=== PATIENT | male | born 1995 | race Caucasian/White ===

== ENCOUNTER 2018-03-02 14:33 | Observation (INO) ==
[2018-03-02] MEDS ORDERED: Sod Chloride 0.9% Inj 1,000 ML IV.SIG ONE (15:04)
--- NOTE | 2018-03-02 15:10 | ED ---
HPI General Chief complaint: Nausea/Vomiting/Diarrhea Stated complaint: gen weakness Time Seen by Provider: 03/02/18 14:42 Source: patient Mode of arrival: ambulatory Limitations: no limitations History of Present Illness HPI Narrative: Patient is a 22-year-old male who presents emergency room with complaints of generalized weakness. Patient reports that he has had a stomach bug for the past 2 weeks, reports that he has been having nausea with diarrhea. Patient reports that he has been able to tolerate foods but has been feeling weak. His father was sick with similar symptoms. Patient reports today, his muscles feel tingly, reports that he feels weak all over his body. Patient denies any fevers or chills, complains of generalized weakness Related Data Home Medications Medication Instructions Recorded Confirmed No Known Home Medications 03/02/18 03/02/18 Allergies Allergy/AdvReac Type Severity Reaction Status Date / Time No Known Allergies Allergy Verified 03/02/18 14:58 Review of Systems ROS: all other systems reviewed are negative [facility] Medical History Medical History Patient denies medical problems (Acute) Surgical History Surgical History No history of previous surgery (Acute) Social History Social History Substance History: No History of Abuse Second Hand Smoke Exposure: No Smoking Status: Never smoker How Often Do You Have a Drink Containing Alcohol: Never Recent Travel in [facility] within the Last 8 Weeks: No Recent Out of Country Travel within the Last 8 Weeks: No Immunization History Tetanus Immunization: Unsure Exam Narrative Exam Narrative: GENERAL: moderate distress SKIN: Focused skin assessment warm/dry. HEAD: Atraumatic. Normocephalic. EYES: Pupils equal and round. No scleral icterus. No injection or drainage. ENT: No nasal bleeding or discharge. Mucous membranes pink and moist. NECK: Trachea midline. No JVD. CARDIOVASCULAR: Tachycardic. No murmur appreciated. RESPIRATORY: Clear to auscultation. Breath sounds equal bilaterally. Patient hyperventilating on exam GASTROINTESTINAL: Abdomen soft, non-tender, nondistended. Hepatic and splenic margins not palpable. MUSCULOSKELETAL: No obvious deformities. No clubbing. No cyanosis. No edema. NEUROLOGICAL: Awake and alert. No obvious cranial nerve deficits. Motor grossly within normal limits. Normal speech. PSYCHIATRIC: Anxious mood and affect; insight and judgment normal. Course Initial Documented Vital Signs Temperature 98.1 F 03/02/18 14:37 Pulse Rate 151 H 03/02/18 14:37 Respiratory Rate 26 H 03/02/18 14:37 Blood Pressure 148/80 H 03/02/18 14:37 Pulse Oximetry 100 03/02/18 14:37 Last Documented Vital Signs Temperature 98.1 F 03/02/18 14:37 Pulse Rate 127 H 03/02/18 16:48 Respiratory Rate 16 03/02/18 16:00 Blood Pressure 138/71 03/02/18 16:00 Pulse Oximetry 99 03/02/18 16:00 Medical Decision Making MDM Narrative Medical decision making narrative: During the course of the patients emergency department visit, the patients history, examination, and differential diagnosis were reviewed with the patient. The patient was placed on a front desk monitor with oximetry and frequent blood pressure monitoring. The patient had an IV access obtained and blood work sent for analysis. The patient was initially provided IVF as well as IV zofran. IV ativan ordered as patient is extremely anxious The patients laboratory studies were reviewed and remarkable for: WBC 2.6, hemoglobin 16.9, hematocrit 47.1, platelets 235 Sodium 136, potassium 3.2, carbon dioxide 17.8, BUN 14, creatinine 1.36, glucose 149, magnesium 2.1, T bili 1.2, AST 19, ALT 20, alk phos 80 CK total 80, lipase 128 Radiology studies were reviewed and remarkable for X-ray chest is negative for acute disease. cta neg for pe- it does show a thyroid nodule patient is dehydrated with a cr of 1.36 - he has been given 3 liters of IVF. Patient is feeling much better but has persistently elevated hr in the 130-140' s plan to obs for cardiac monitoring case reviewed with Dr. Beard who accepts pt to service Medical Screen Exam Complete: Yes Emergency Medical Condition: Yes Differential Diagnosis Differential Diagnosis: anxiety reaction, electrolyte abnormality, rhabdomyolysis, colitis Lab Data Lab results reviewed: Yes I reviewed the patient's lab results. Result diagrams: 03/02/18 15:10 03/02/18 15:10 Lab Results 03/02/18 03/02/18 03/02/18 Range/Units 15:10 15:10 16:55 WBC 2.6 L (4.0-11.0) th/mm3 RBC 5.07 (4.50-5.90) mil/mm3 Hgb 16.9 (13.0-17.0) gm/dL Hct 47.1 (39.0-51.0) % MCV 92.9 (80.0-100.0) fL MCH 33.3 (27.0-34.0) pg MCHC 35.9 (32.0-36.0) % RDW 12.4 (11.6-17.2) % Plt Count 235 (150-450) th/mm3 MPV 7.7 (7.0-11.0) fL Neut % (Auto) 47.2 (16.0-70.0) % Lymph % (Auto) 39.5 (9.0-44.0) % [place] % (Auto) 11.2 H (0.0-8.0) % Eos % (Auto) 1.3 (0.0-4.0) % Baso % (Auto) 0.8 (0.0-2.0) % Neut # (Auto) 1.2 L (1.8-7.7) th/mm3 Lymph # (Auto) 1.0 (1.0-4.8) th/mm3 [place] # (Auto) 0.3 (0.0-0.9) th/mm3 Eos # (Auto) 0.0 (0.0-0.4) th/mm3 Baso # (Auto) 0.0 (0.0-0.2) th/mm3 WBC Differential . Differential Comment Auto diff final Sodium 136 (136-145) meq/L Potassium 3.2 L (3.5-5.1) meq/L Chloride 105 (98-107) meq/L Carbon Dioxide 17.8 L (21.0-32.0) meq/L Anion Gap 13 (5-15) meq/L BUN 14 (7-18) mg/dL Creatinine 1.36 H (0.60-1.30) mg/dL Estimated GFR 66 L (>89) mL/min Random Glucose 149 H (74-106) mg/dL Calcium 9.9 (8.5-10.1) mg/dL Magnesium 2.1 (1.5-2.5) mg/dL Total Bilirubin 1.2 H (0.2-1.0) mg/dL AST 19 (15-37) U/L ALT 20 (12-78) U/L Alkaline Phosphatase 80 (45-117) U/L Total Creatine Kinase 100 (39-308) U/L Total Protein 8.6 H (6.4-8.2) g/dL Albumin 4.8 (3.4-5.0) g/dL Lipase 128 (73-393) U/L Urine Color Straw (Yellw/Straw) Urine Clarity Clear (Clear) Urine pH 8.0 (5.0-8.5) Ur Specific [place] 1.004 (1.002-1.035) Urine Protein Negative (Neg-Trace) mg/dL Urine Glucose (UA) Negative (Negative) mg/dL Urine Ketones Trace H (Negative) mg/dL Urine Occult Blood Negative (Negative) Urine Nitrate Negative (Negative) Urine Bilirubin Negative (Negative) Urine Urobilinogen Less than 2 (Less than 2) mg/dL Ur Leukocyte Esterase Negative (Negative) Urine WBC Less than 1 (0-5) /hpf Micro UA Comment Culture not ind Ur Microscopic Review Not Reportable Urine Culture Comments Culture not ind Imaging Data Radiologist's impression: Chest X-Ray 03/02/18 15:05 CONCLUSION: Negative for acute disease Chest CTA 03/02/18 17:04 CONCLUSION: 1. No pulmonary embolus or other acute cardiopulmonary disease demonstrated. 2. Left lobe thyroid nodule. Further characterization with outpatient thyroid ultrasound is recommended. Discharge Plan Discharge Disposition Patient Disposition: ED Admit(ED Internal Use Only) Discharge Condition Condition: Fair Discharge Order Discharge Orders: ED Use Only Admit Order (Routine); Ordered 03/02/18 Ordered By: Ngozi Berman Discharge Details Diagnosis: Dehydration, Tachycardia Physicians Team ED Provider: Ngozi Berman Primary Care Provider: UNKNOWN, Rxs /Orders / Referrals /Forms Prescriptions: No Action No Known Home Medications RF: 0 Status ED Status: Pending Admission
[2018-03-02] MEDS: Sod Chloride 0.9% Inj 1,000 ML IV.SIG SCH ×2 (15:14→15:42)
--- NOTE | 2018-03-02 15:22 | XR ---
EXAM DATE: 03/02/2018 3:18 PM EST AGE/SEX: 22 years / Male INDICATIONS: General weakness, nausea and diarrhea. CLINICAL DATA: This is the patient's initial encounter. Patient reports that signs and symptoms have been present for 2 weeks and indicates a pain score of 3/10. MEDICAL/SURGICAL HISTORY: None. None. COMPARISON: No prior exams available for comparison. FINDINGS: A single AP view of the chest demonstrates the lungs to be symmetrically aerated without evidence of mass, infiltrate or effusion. The cardiomediastinal contours are unremarkable. Osseous structures a re intact. CONCLUSION: Negative for acute disease Electronically signed by: Raul Burrows MD 03/02/2018 3:21 PM EST
[2018-03-02 15:51] LABS: Baso % (Auto) 0.8 % (0.0-2.0); Eos % (Auto) 1.3 % (0.0-4.0); Hematocrit 47.1 % (39.0-51.0); Hemoglobin 16.9 gm/dL (13.0-17.0); Lymph % (Auto) 39.5 % (9.0-44.0); Mean Corpuscular HGB Conc 35.9 % (32.0-36.0); Mean Corpuscular Hemoglobin 33.3 pg (27.0-34.0); Mean Corpuscular Volume 92.9 fL (80.0-100.0); Mean Platelet Volume 7.7 fL (7.0-11.0); Mono # (Auto) 0.3 th/mm3 (0.0-0.9); Mono % (Auto) 11.2 % (0.0-8.0); Neut # (Auto) 1.2 th/mm3 (1.8-7.7); Neut % (Auto) 47.2 % (16.0-70.0); Platelet Count 235 th/mm3 (150-450); Red Blood Count 5.07 mil/mm3 (4.50-5.90); Red Cell Distribution Width 12.4 % (11.6-17.2); White Blood Count 2.6 th/mm3 (4.0-11.0)
[2018-03-02 16:13] LABS: Albumin 4.8 g/dL (3.4-5.0); Anion Gap 13 meq/L (5-15); Aspartate Aminotransferase 19 U/L (15-37); Blood Urea Nitrogen 14 mg/dL (7-18); Calcium 9.9 mg/dL (8.5-10.1); Carbon Dioxide 17.8 meq/L (21.0-32.0); Chloride 105 meq/L (98-107); Glomerular Filtration Rate 66 mL/min (>89); Glucose,Random 149 mg/dL (74-106); Lipase 128 U/L (73-393); Magnesium 2.1 mg/dL (1.5-2.5); Potassium 3.2 meq/L (3.5-5.1); Sodium 136 meq/L (136-145)
[2018-03-02 16:16] LABS: Alanine Aminotransferase 20 U/L (12-78); Alkaline Phosphatase 80 U/L (45-117); Total Protein 8.6 g/dL (6.4-8.2)
[2018-03-02 16:17] LABS: Creatine Kinase 100 U/L (39-308)
[2018-03-02] MEDS ORDERED: Sod Chloride 0.9% Inj 1,000 ML IV.SIG SCH (17:00)
[2018-03-02 17:31] LABS: Bilirubin,Urine Negative (Negative); Clarity,Urine Clear (Clear); Color,Urine Straw (Yellw/Straw); Glucose,Urine (UA) Negative (Negative); Leukocyte Esterase,Urine Negative (Negative); Nitrite,Urine Negative (Negative); Specific Gravity,Urine 1.004 (1.002-1.035)
--- NOTE | 2018-03-02 18:18 | CT ---
EXAM DATE: 03/02/2018 6:06 PM EST AGE/SEX: 22 years / Male INDICATIONS: Weakness, Nausea 2 weeks CLINICAL DATA: This is the patient's initial encounter. Patient reports that signs and symptoms have been present for 2 weeks and indicates a pain score of 0/10. MEDICAL/SURGICAL HISTORY: None. None. RADIATION DOSE: 7.78 CTDI (mGy) COMPARISON: No prior exams available for comparison. TECHNIQUE: Volumetric scanning was performed using a multi-row detector CT scanner during bolus infu ozzy of 74ML ml Omnipaque 350 (iohexol) nonionic water-soluble contrast as a single exam dose. The d loyda was post processed with a variety of visualization algorithms including full volume maximum inten sity projection and sliding thin slab reformation. Using automated exposure control and adjustment o f the mA and/or kV according to patient size, radiation dose was kept as low as reasonably achievable to obtain optimal diagnostic quality images. DICOM format image data is available electronically fo r review and comparison. FINDINGS: There is no pulmonary embolus. No infiltrate, pleural effusion or pneumothorax. Normal heart size. There is no mediastinal, hilar or axillary lymphadenopathy. 14 mm nodule of the left lobe of the thyroid gland. CONCLUSION: 1. No pulmonary embolus or other acute cardiopulmonary disease demonstrated. 2. Left lobe thyroid nodule. Further characterization with outpatient thyroid ultrasound is recommen ded. Electronically signed by: Nitesh Neal MD 03/02/2018 6:16 PM EST
[2018-03-02] MEDS ORDERED: Bisacodyl 10 MG Supp RECTAL PRN (19:19)
[2018-03-02] MEDS ORDERED: Acetaminophen 325 MG Tablet PO PRN (19:19)
--- NOTE | 2018-03-02 19:21 | P.HPIM ---
History of Present Illness Primary Care Physician: UNKNOWN History of Present Illness: This is a 22-year-old male with no significant PMH who presents the ER with complaints of generalized weakness, in addition to nausea and diarrhea x2 wks. States he was in [place] 2wks ago for Thanksgiving when symptoms began, denies hiking /camping, reports father with similar symptoms. + intermittent episodes of nausea, no vomiting and diarrhea, now improved after taking OTC anti- diarrheals. Denies fever or chills. Appetite normal. Main complaint is generalized weakness. On arrival, BP 148/80, HR 151, O2 sat 100% on RA, Afebrile. WBC 2.6. K+ 3.2. Creatinine 1.36, no previous labs for comparison. UA negative for UTI. Urine Drug Screen negative per CXR with no acute findings. CTA Chest no PE, left lobe thyroid nodule. While in ER pt received 3L IVF, remains tachycardic w/ HR 120's, asymptomatic at this time. No chest pain or SOB. - Diagnosis (1) Gastroenteritis (2) LIZZETTE (acute kidney injury) (3) Hypokalemia (4) Tachycardia Review of Systems PAST FAMILY HISTORY: Reviewed. No h/o DM or CAD All other systems reviewed negative except as stated in HPI PMFSH - History History Provided By: Patient - Medical History Medical History: Medical History (Last Reviewed 03/02/18 @ 15:39 by Ngozi Berman) Patient denies medical problems - Surgical History Surgical History: Surgical History (Last Reviewed 03/02/18 @ 15:39 by Ngozi Berman) No history of previous surgery - Tobacco History Second Hand Smoke Exposure: No Tobacco Use In Past 30 Days: No Smoking Status: Never smoker - Alcohol History How Often Do You Have a Drink Containing Alcohol: Never - Substance Use History Substance History: No History of Abuse - Travel History Recent Travel in the [place] Within the Last 8 Weeks: No Recent Travel Out of the Country Within the Last 8 Weeks: No - Immunization History Tetanus Immunization: Unsure Medications and Allergies Active Medications: Active Medications Sodium Chloride (Ns Flush) 2 ml IV.FLUSH PRN PRN PRN Reason: FLUSH AFTER USING IV ACCESS Last Admin: 03/02/18 15:14 Dose: 2 ml Allergies Allergy/AdvReac Type Severity Reaction Status Date / Time No Known Allergies Allergy Verified 03/02/18 14:58 Home Medications Medication Instructions Recorded Confirmed Type No Known Home Medications 03/02/18 03/02/18 History Exam Vital signs: Vital Signs 03/02/18 14:37 03/02/18 16:00 03/02/18 16:48 Temperature 98.1 F Pulse Rate 151 H 106 H 127 H Respiratory Rate 26 H 16 Blood Pressure 148/80 H 138/71 Pulse Oximetry 100 99 Intake & Output 03/02/18 03/02/18 03/03/18 06:59 18:59 06:59 Intake Total 4000 / 4000 Balance 4000 / 4000 Weight 65.771 kg Intake: IV 4000 / 4000 NS Inj 1,000 ML @ 1000 mls/hr 4000 / 4000 IV.SIG BOLUS GLENIS Rx#:[id number] Narrative: PE: GENERAL: Very pleasant young white male in no acute distress. SKIN: Focused skin assessment warm and dry. HEENT: PERRLA, EOMI. No scleral icterus or conjunctival pallor. No lid lag or facial droop. CARDIOVASCULAR: Tachycardic, HR 130s. No obvious murmurs to auscultation. No chest tenderness to palpation. RESPIRATORY: No obvious rhonchi or wheezing. Clear to auscultation. Breath sounds equal bilaterally. GASTROINTESTINAL: Abdomen soft, non-tender, nondistended. BS normal. MUSCULOSKELETAL: Extremities without clubbing, cyanosis, or edema. No obvious deformities. NEUROLOGICAL: Awake, alert and oriented x4. No focal neurologic deficits. Moving both upper and lower extremities spontaneously. PSYCHIATRIC: Appropriate mood and affect. Insight and judgment normal. Results - Labs CBC & Chem 7: 03/02/18 15:10 03/02/18 15:10 Labs: Short CBC 03/02/18 Range/Units 15:10 WBC 2.6 L (4.0-11.0) th/mm3 Hgb 16.9 (13.0-17.0) gm/dL Hct 47.1 (39.0-51.0) % Plt Count 235 (150-450) th/mm3 BMP 03/02/18 15:10 Sodium 136 Potassium 3.2 L Chloride 105 Carbon Dioxide 17.8 L BUN 14 Creatinine 1.36 H Calcium 9.9 Cardiac Enzymes 03/02/18 Range/Units 15:10 Total Creatine Kinase 100 (39-308) U/L Liver Function 03/02/18 Range/Units 15:10 Total Bilirubin 1.2 H (0.2-1.0) mg/dL AST 19 (15-37) U/L ALT 20 (12-78) U/L Alkaline Phosphatase 80 (45-117) U/L Albumin 4.8 (3.4-5.0) g/dL Urine 03/02/18 Range/Units 16:55 Urine Color Straw (Yellw/Straw) Urine Clarity Clear (Clear) Urine pH 8.0 (5.0-8.5) Ur Specific [place] 1.004 (1.002-1.035) Urine Protein Negative (Neg-Trace) mg/dL Urine Glucose (UA) Negative (Negative) mg/dL - Imaging Impressions Chest X-Ray 03/02/18 15:05 CONCLUSION: Negative for acute disease Chest CTA 03/02/18 17:04 CONCLUSION: 1. No pulmonary embolus or other acute cardiopulmonary disease demonstrated. 2. Left lobe thyroid nodule. Further characterization with outpatient thyroid ultrasound is recommended. Caprini VTE Risk Assessment Caprini VTE Risk Assessment: No/Low Risk (score <= 1) Caprini Risk Assessment Model: Point Value = 1 Point Value = 2 Point Value = 3 Point Value = 5 Age 41-60 Minor surgery BMI > 25 kg/m2 Swollen legs Varicose veins or History of unexplained or recurrent spontaneous Oral contraceptives or hormone replacement Sepsis (< 1 month) Serious lung disease, including pneumonia (< 1 month) Abnormal pulmonary function Acute myocardial infarction Congestive heart failure (< 1 month) History of inflammatory bowel disease Medical patient at bed rest Age 61-74 Arthroscopic surgery Major open surgery (> 45 min) Laparoscopic surgery (> 45 min) Malignancy Confined to bed (> 72 hours) Immobilizing plaster cast Central venous access Age >= 75 History of VTE Family history of VTE Factor V Leiden Prothrombin [id number] Lupus anticoagulant Anticardiolipin antibodies Elevated serum homocysteine Heparin-induced thrombocytopenia Other congenital or acquired thrombophilia Stroke (< 1 month) Elective arthroplasty Hip, pelvis, or leg fracture Acute spinal cord injury (< 1 month) Prophylaxis Regimen: Total Risk Factor Score Risk Level Prophylaxis Regimen 0-1 Low Early ambulation 2 Moderate Order ONE of the following: *Sequential Compression Device (SCD) *Heparin 5000 units SQ BID 3-4 Higher Order ONE of the following medications: *Heparin 5000 units SQ TID *Enoxaparin/Lovenox 40 mg SQ daily (WT < 150 kg, CrCl > 30 mL/min) *Enoxaparin/Lovenox 30 mg SQ daily (WT < 150 kg, CrCl > 10-29 mL/min) *Enoxaparin/Lovenox 30 mg SQ BID (WT < 150 kg, CrCl > 30 mL/min) AND/OR *Sequential Compression Device (SCD) 5 or more Highest Order ONE of the following medications: *Heparin 5000 units SQ TID (Preferred with Epidurals) *Enoxaparin/Lovenox 40 mg SQ daily (WT < 150 kg, CrCl > 30 mL/min) *Enoxaparin/Lovenox 30 mg SQ daily (WT < 150 kg, CrCl > 10-29 mL/min) *Enoxaparin/Lovenox 30 mg SQ BID (WT < 150 kg, CrCl > 30 mL/min) AND *Sequential Compression Device (SCD) Assessment and Plan - Assessment (1) Gastroenteritis Code(s): K52.9 - Noninfective gastroenteritis and colitis, unspecified Status : Acute (2) LIZZETTE (acute kidney injury) Code(s): N17.9 - Acute kidney failure, unspecified Status: Acute (3) Hypokalemia Code(s): E87.6 - Hypokalemia Status: Acute (4) Tachycardia Code(s): R00.0 - Tachycardia, unspecified Status: Acute - Plan A/P: 1. Gastroenteritis: c/o nausea and diarrhea on and off x2 wks, appetite normal , no abdominal pain, no fever/chills, father w/ similar symptoms, likely viral etiology. Antiemetics prn, check stool culture/C diff, CT Abd/Pelvis and possible GI eval if no improvement in symptoms. 2. Tachycardia: HR 150's on arrival, s/p IVF x3L in ER w/ persistent tachycardia, unclear etiology, no excessive caffeine intake, no anxiety. U/a and UDS negative, Check TSH/T3/T4. Check Echo to eval for valvular abnormality/ cardiomyopathy. Consult Cardio if needed for possible Holter monitoring if no resolution. 3. LIZZETTE: Creatinine 1.36, no previous labs for comparison, presumably new and due to dehydration from above, IVF, monitor I/O, repeat labs in am. 4. Hypokalemia: K+ 3.2, s/p replacement, will recheck, additional replacement as needed. Mg normal. 5. DVT Prophylaxis: SCD/Teds 6. Social work for d/c planning as needed 7. Case discussed w/ ER physician at length, labs/records/imaging reviewed by me.
[2018-03-02] MEDS: Sod Chloride 0.9% Inj 1,000 ML IV.CONT SCH (19:52)
[2018-03-02 20:13] LABS: Amphetamine Screen,Urine Neg (Neg); Barbiturate Screen,Urine Neg (Neg); Cannabinoid Screen,Urine Neg (Neg); Cocaine Screen,Urine Neg (Neg)
[2018-03-02 20:14] LABS: Opiate Screen,Urine Neg (Neg)
[2018-03-02 20:19] LABS: Free T4 (Free Thyroxine) 1.59 ng/dL (0.76-1.46); Triiodothyronine (T3) Free 3.62 pg/mL (2.18-3.98)
[2018-03-02] MEDS: Senna/Docusate Sodium 8.6/50 MG Tablet PO SCH (21:45)
[2018-03-03] MEDS: Sod Chloride 0.9% Inj 1,000 ML IV.CONT SCH ×2 (05:17→15:11)
[2018-03-03 06:18] LABS: Baso % (Auto) 0.5 % (0.0-2.0); Eos % (Auto) 0.9 % (0.0-4.0); Hematocrit 41.5 % (39.0-51.0); Hemoglobin 14.6 gm/dL (13.0-17.0); Lymph # (Auto) 1.2 th/mm3 (1.0-4.8); Lymph % (Auto) 23.3 % (9.0-44.0); Mean Corpuscular HGB Conc 35.2 % (32.0-36.0); Mean Corpuscular Hemoglobin 33.6 pg (27.0-34.0); Mean Corpuscular Volume 95.4 fL (80.0-100.0); Mean Platelet Volume 7.4 fL (7.0-11.0); Mono # (Auto) 0.5 th/mm3 (0.0-0.9); Mono % (Auto) 10.6 % (0.0-8.0); Neut # (Auto) 3.3 th/mm3 (1.8-7.7); Neut % (Auto) 64.7 % (16.0-70.0); Platelet Count 182 th/mm3 (150-450); Red Blood Count 4.35 mil/mm3 (4.50-5.90); Red Cell Distribution Width 12.8 % (11.6-17.2); White Blood Count 5.1 th/mm3 (4.0-11.0)
[2018-03-03 06:42] LABS: Alanine Aminotransferase 15 U/L (12-78); Albumin 3.8 g/dL (3.4-5.0); Anion Gap 8 meq/L (5-15); Aspartate Aminotransferase 15 U/L (15-37); Blood Urea Nitrogen 8 mg/dL (7-18); Calcium 7.9 mg/dL (8.5-10.1); Carbon Dioxide 24.5 meq/L (21.0-32.0); Chloride 110 meq/L (98-107); Glomerular Filtration Rate Greater Than 89 mL/min (>89); Glucose,Random 99 mg/dL (74-106); Potassium 3.5 meq/L (3.5-5.1); Sodium 142 meq/L (136-145)
[2018-03-03 06:45] LABS: Alkaline Phosphatase 64 U/L (45-117)
[2018-03-03] MEDS: Senna/Docusate Sodium 8.6/50 MG Tablet PO SCH ×2 (08:33→20:30)
[2018-03-03] MEDS ORDERED: Magnesium Oxide 400 MG Tablet PO ONE (11:42)
[2018-03-03] MEDS ORDERED: Potassium Chloride 10 MEQ ER Capsule PO ONE (11:42)
--- NOTE | 2018-03-03 15:18 | ECHRPT ---
Indication: CARDIOMYOPATHY CONCLUSIONS Normal left ventricular size. Wall thickness is normal. The left ventricular systolic function is normal with an estimated ejection fraction in the range of 60-65%. BP: / HR: Rhythm: Sinus MEASUREMENTS (Male / Female) Normal Values Technical Quality:Fair 2D ECHO LV Diastolic Diameter PLAX 4.9 cm 4.2 - 5.9 / 3.9 - 5.3 cm LV Systolic Diameter PLAX 3.5 cm IVS Diastolic Thickness 0.7 cm 0.6 - 1.0 / 0.6 - 0.9 cm LVPW Diastolic Thickness 0.7 cm 0.6 - 1.0 / 0.6 - 0.9 cm LV Relative Wall Thickness 0.3 RV Internal Dim ED PLAX 2.5 cm LVOT Diameter 2.3 cm Aortic Root Diameter 3.2 cm LA Systolic Diameter LX 2.4 cm 3.0 - 4.0 / 2.7 - 3.8 cm M-MODE AV Cusp Separation MM 2.3 cm DOPPLER AV Peak Velocity 113.0 cm/s AV Peak Gradient 5.1 mmHg AV Mean Gradient 2.0 mmHg AV Velocity Time Integral 16.2 cm LVOT Peak Velocity 103.0 cm/s LVOT Peak Gradient 4.2 mmHg LVOT Velocity Time Integral 14.5 cm AV Area Cont Eq vti 3.7 cm AV Area Cont Eq pk 3.8 cm Mitral E Point Velocity 72.1 cm/s Mitral A Point Velocity 45.9 cm/s Mitral E to A Ratio 1.6 LV E' Lateral Velocity 19.2 cm/s Mitral E to LV E' Lateral Ratio 3.8 LV E' Septal Velocity 12.1 cm/s Mitral E to LV E' Septal Ratio 6.0 PV Peak Velocity 75.9 cm/s PV Peak Gradient 2.3 mmHg FINDINGS LEFT VENTRICLE Normal left ventricular size. Wall thickness is normal. The left ventricular systolic function is normal with an estimated ejection fraction in the range of 60-65%. RIGHT VENTRICLE Normal right ventricular size and systolic function. LEFT ATRIUM The left atrial size is normal. RIGHT ATRIUM The right atrial size is normal. ATRIAL SEPTUM Normal atrial septal thickness without atrial level shunting by limited color doppler interrogation. AORTA The aortic root and proximal ascending aorta are normal in size on limited imaging. MITRAL VALVE Structurally normal mitral valve. No mitral valve stenosis or regurgitation. AORTIC VALVE Trileaflet aortic valve. No aortic valve stenosis or regurgitation. TRICUSPID VALVE Structurally normal tricuspid valve. No tricuspid valve stenosis or regurgitation. PULMONARY VALVE The pulmonary valve is not well visualized. VESSELS The inferior vena cava is normal in size. PERICARDIUM No pericardial effusion. Cody Troncoso MD, FACC (Electronically Signed) Final Date:03 March 2018 15:18
--- NOTE | 2018-03-03 17:30 | ECG ---
Date Performed: 03/02/2018 Time Performed: 14:52:09 PTAGE: 22 years EKG: SINUS TACHYCARDIA NONSPECIFIC ST & T-WAVE ABNORMALITY ABNORMAL RHYTHM ECG NO PREVIOUS TRACING DOCTOR: Nilay Rascon Interpretating Date/Time 03/03/2018 17:24:18
[2018-03-03] MEDS: Potassium Chloride 10 MEQ ER Capsule PO SCH (20:30)
[2018-03-04] MEDS: Sod Chloride 0.9% Inj 1,000 ML IV.CONT SCH (01:40)
[2018-03-04 05:03] LABS: Baso % (Auto) 0.6 % (0.0-2.0); Eos # (Auto) 0.1 th/mm3 (0.0-0.4); Eos % (Auto) 2.6 % (0.0-4.0); Hematocrit 42.7 % (39.0-51.0); Hemoglobin 14.8 gm/dL (13.0-17.0); Lymph # (Auto) 1.5 th/mm3 (1.0-4.8); Lymph % (Auto) 37.8 % (9.0-44.0); Mean Corpuscular HGB Conc 34.7 % (32.0-36.0); Mean Corpuscular Hemoglobin 33.2 pg (27.0-34.0); Mean Corpuscular Volume 95.6 fL (80.0-100.0); Mean Platelet Volume 7.7 fL (7.0-11.0); Mono # (Auto) 0.5 th/mm3 (0.0-0.9); Mono % (Auto) 12.5 % (0.0-8.0); Neut # (Auto) 1.8 th/mm3 (1.8-7.7); Neut % (Auto) 46.5 % (16.0-70.0); Platelet Count 180 th/mm3 (150-450); Red Blood Count 4.47 mil/mm3 (4.50-5.90); Red Cell Distribution Width 12.7 % (11.6-17.2); White Blood Count 3.9 th/mm3 (4.0-11.0)
[2018-03-04 05:21] LABS: Alanine Aminotransferase 15 U/L (12-78); Albumin 3.9 g/dL (3.4-5.0); Anion Gap 8 meq/L (5-15); Aspartate Aminotransferase 14 U/L (15-37); Blood Urea Nitrogen 7 mg/dL (7-18); Carbon Dioxide 26.2 meq/L (21.0-32.0); Chloride 109 meq/L (98-107); Glomerular Filtration Rate Greater Than 89 mL/min (>89); Glucose,Random 74 mg/dL (74-106); Potassium 3.7 meq/L (3.5-5.1); Sodium 143 meq/L (136-145)
[2018-03-04 05:24] LABS: Alkaline Phosphatase 67 U/L (45-117); Total Protein 7.3 g/dL (6.4-8.2)
[2018-03-04] MEDS: Senna/Docusate Sodium 8.6/50 MG Tablet PO SCH (08:27)
[2018-03-04] MEDS: Potassium Chloride 10 MEQ ER Capsule PO SCH (08:27)
[2018-03-04] MEDS ORDERED: Magnesium Oxide 400 MG Tablet PO SCH (09:00)
--- NOTE | 2018-03-04 11:26 | P.DS ---
DS: Providers Date of admission: 03/02/18 19:10 Primary care physician: UNKNOWN Brief History from admission: This is a 22-year-old male with no significant PMH who presents the ER with complaints of generalized weakness, in addition to nausea and diarrhea x2 wks. States he was in [place] 2wks ago for Thanksgiving when symptoms began, denies hiking /camping, reports father with similar symptoms. + intermittent episodes of nausea, no vomiting and diarrhea, now improved after taking OTC anti- diarrheals. Denies fever or chills. Appetite normal. Main complaint is generalized weakness. On arrival, BP 148/80, HR 151, O2 sat 100% on RA, Afebrile. WBC 2.6. K+ 3.2. Creatinine 1.36, no previous labs for comparison. UA negative for UTI. Urine Drug Screen negative per CXR with no acute findings. CTA Chest no PE, left lobe thyroid nodule. While in ER pt received 3L IVF, remains tachycardic w/ HR 120's, asymptomatic at this time. No chest pain or SOB. DS: Diagnosis Discharge Diagnosis (1) Gastroenteritis: Status: Acute (2) LIZZETTE (acute kidney injury): Status: Acute (3) Hypokalemia: Status: Acute (4) Tachycardia: Status: Acute DS: Summary Mr. Tanner is a 22-year-old male. He was admitted secondary to tachycardia in the presence of diarrhea. He says this is been going on for 2 weeks and he showed signs of dehydration at time of admit. Tachycardia may have been reactive to dehydration or part of a viral phenomenon. With IV hydration he has had resolution of his tachycardia and his renal function has returned to normal. Diarrhea has resolved. No concerns for C. difficile at this point. Patient's medically stable and cleared for discharge home today. Of note, he is advised that if this symptom of persistent diarrhea returns he should pursue a gastroenterology workup including colonoscopy to evaluate for inflammatory bowel disease. Time Spent with Patient Total time spent providing and/or coordinating discharge services: Quality: VTE Deep Vein Thrombosis/Pulmonary Embolism Present on Admission: No Results Labs on day of discharge: Labs from last 24 hours 03/04/18 03/04/18 03:25 03:25 WBC 3.9 L RBC 4.47 L Hgb 14.8 Hct 42.7 MCV 95.6 MCH 33.2 MCHC 34.7 RDW 12.7 Plt Count 180 MPV 7.7 Neut % (Auto) 46.5 Lymph % (Auto) 37.8 [place] % (Auto) 12.5 H Eos % (Auto) 2.6 Baso % (Auto) 0.6 Neut # (Auto) 1.8 Lymph # (Auto) 1.5 [place] # (Auto) 0.5 Eos # (Auto) 0.1 Baso # (Auto) 0.0 WBC Differential . Differential Comment Auto diff final Sodium 143 Potassium 3.7 Chloride 109 H Carbon Dioxide 26.2 Anion Gap 8 BUN 7 Creatinine 0.88 Estimated GFR Greater than 89 Random Glucose 74 Calcium 8.0 L Total Bilirubin 0.5 AST 14 L ALT 15 Alkaline Phosphatase 67 Total Protein 7.3 Albumin 3.9 Impressions ITS Impressions Chest X-Ray 03/02/18 15:05 CONCLUSION: Negative for acute disease Chest CTA 03/02/18 17:04 CONCLUSION: 1. No pulmonary embolus or other acute cardiopulmonary disease demonstrated. 2. Left lobe thyroid nodule. Further characterization with outpatient thyroid ultrasound is recommended. Discharge Plan Discharge Disposition Patient Disposition: Discharge Home Discharge Condition Condition: Fair Discharge Order Discharge Orders: Discharge Order (Routine); Ordered 03/04/18 Ordered By: Arian Paulino Discharge Details Anticipated Discharge Date: 03/04/18 Physicians Team Primary Care Provider: MARCO, Attending Provider: Arian Paulino Rxs /Orders / Referrals /Forms Prescriptions: Continue No Known Home Medications RF: 0 Referrals: UNKNOWN, [Primary Care Provider] - See Instructions Discharge Instructions Patient Printed Instructions: Dehydration (DC) Additional Instructions: Your Health Problems: Goals to Promote Your Health: * To prevent worsening of your condition * To maintain your health at the optimal level Directions to Meet Your Goals: * Take your medications as prescribed * Follow your dietary instruction * Follow activity as directed * Keep your appointments as scheduled * Take your immunizations and boosters as scheduled * If your symptoms worsen call your PCP * If no PCP go to Urgent Care or Emergency Room Smoking is dangerous to your health. Avoid second hand smoke. You may reach the 24-hour crisis hotline for domestic abuse at . Post Discharge Care Plan Care Plan Goals: Your Health Problems: Goals to Promote Your Health: * To prevent worsening of your condition * To maintain your health at the optimal level Directions to Meet Your Goals: * Take your medications as prescribed * Follow your dietary instruction * Follow activity as directed * Keep your appointments as scheduled * Take your immunizations and boosters as scheduled * If your symptoms worsen call your PCP * If no PCP go to Urgent Care or Emergency Room Smoking is dangerous to your health. Avoid second hand smoke. You may reach the 24-hour crisis hotline for domestic abuse at . Status ED Status: Left Department Discharge Information Discharge Date/Time: 03/04/18 10:31
== END 2018-03-04 10:31 | disposition home or self-care (01) ==
LOC: NEDA 14:33 → NEPC 14:33 → HCIN 23:14
PROVIDERS: ADMIT Hospitalist; ATTEND Hospitalist